=== PATIENT | female | born 1935 | race Caucasian/White ===

== ENCOUNTER → 2023-10-21 06:55 | Outpatient (REF) | payer MEDICARE, BC, SELFPAY | LOC: HWRAD 06:55 | PROVIDERS: ATTENDING PHYSICIAN Internal Medicine Critical Care Medicine; FAMILY PHYSICIAN Internal Medicine | DX: R91.1 Solitary pulmonary nodule (principal) | CPT/HCPCS: 71250 ==

== ENCOUNTER 2023-11-30 03:52 | Emergency (ER) | payer MEDICARE, BC, SELFPAY ==
[2023-11-30 03:53] VITALS: BP 162/84
[2023-11-30 04:08] VITALS: BMI 25.0
--- NOTE | 2023-11-30 07:14 | ED.GENMED ---
History of Present Illness
General
Chief Complaint: Extremity Pain (non-traumatic)
Source: patient
Time Seen by Provider: 11/30/23 06:02
Travel History
Have you had any contact with someone who has COVID-19?: No
Do you have any symptoms of coronavirus? Fever > 100 degrees, chills, cough, shortness of breath, sore throat, loss of taste or smell, muscle aches, or headache?: No
History of Present Illness
History of Present Illness:
88-year-old female with history of spinal stenosis who frequently gets epidural injections who presents with left lower extremity pain. She states pain is, lateral to the left calf little bit to the lateral aspect of the back of the knee on the
left. Patient states that this is somewhat similar to her previous lumbar to radiculopathy but admits she was concerned she could have a blood clot. The patient states she took only little bit of tramadol at home and can continue tramadol as
needed but wanted to take the lowest possible dose. She mostly is here to make sure she does have a blood clot.
Past History
Past History
ED Past Medical History: CAD, GERD, HTN, Hypercholesterolemia, Hypothyroidism and Other (Lumbar spinal stenosis)
ED Past Surgical History: Appendectomy, Cardiac and Cholecystectomy
Social History
Tobacco: Non-smoker
Alcohol: None
Drug: None
Living: alone
Phy Exam
Physical Exam
Physical Exam:
CONSTITUTIONAL Vital signs reviewed, Patient alert and oriented to person, place and time. Well-appearing
HEAD atraumatic, normocephalic.
EYES eyelids normal to inspection, Extraocular muscles intact, Conjunctiva normal, Sclera normal.
NECK normal range of motion, Trachea midline, no jugular venous distention.
RESP no respiratory distress
BACK No obvious deformities
UPPER EXTREMITY Gross Range of motion normal, gross motor strength normal
LOWER EXTREMITY Gross range of motion normal, Gross motor strength normal, no edema, normal bilateral dorsalis pedis pulses. No palpable cords. Obvious tenderness noted to the lateral edge of the calf at the proximal portion.
NEURO Speech normal, No focal motor deficits include, [place] coma scale 15, Memory normal, Cranial Nerves intact to screening exam.
SKIN Skin warm, dry, and normal in color.
PSYCHIATRIC Patient oriented to person place and time, Normal affect.
Course
Orders/Labs/Results
Orders:
Orders
11/30/23 06:23
D-Dimer Urgent
Abnormal Lab Results
11/30/23
06:23
D-Dimer 0.61 H ug/mlFEU
(0.00-0.50)
Vital Signs
Initial and Last Documented VS:
Initial Vital Signs
Temp Pulse Resp BP Pulse Ox
98.1 F 88 24 162/84 98
11/30/23 03:53 11/30/23 03:53 11/30/23 03:53 11/30/23 03:53 11/30/23 03:53
Last Documented Vital Signs
Temp Pulse Resp BP Pulse Ox
98.1 F 88 24 162/84 98
11/30/23 03:53 11/30/23 03:53 11/30/23 03:53 11/30/23 03:53 11/30/23 03:53
MDM/Problems Addressed
MDM/Problems Addressed:
Leg pain, lumbar radiculopathy, rule out DVT
*Pulse Oximetry
Patient hypoxic: no
*Critical Care Note
Total Time (30-74mins, 75-104mins- exclusive of procedures): Not Applicable
Data Reviewed
Source: patient
Further Testing Considered But Not Given:
Considered ultrasound but age-adjusted D-dimer is negative. In addition the patient is low risk by both her history and exam.
Patient Management
Escalation/DeEscalation of care consider admission/obs:
Patient appears well. Age-adjusted D-dimer negative (Medi-Calc calculation at 0.86 age-adjusted). Okay for discharge. Continue tramadol at home. Add short course of steroids
ED Attending Note
-
Portions of this chart may have been created with voice recognition software.� Occasional wrong word or��sound alike� substitutions may have occurred due to the inherent limitations of voice recognition software.
Discharge Plan
Departure
Patient Disposition: Home (Routine Discharge)
Date of Disposition: 11/30/23
Time of Disposition: 07:50
Patient with high blood pressure during this ER visit?: Yes
Discharge Problem:
Acute lumbar radiculopathy
Instructions: Radiculopathy, BLOOD PRESSURE
Prescriptions:
New
prednisone 10 mg Tablet
See Rx Instructions .ROUTE .COMPLEX Qty: 30 0RF
Rx Instructions:
Take By Mouth:
40 mg daily x3 days, 30 mg daily x3 days,
20 mg daily x3 days, 10 mg daily x3 days.
No Action
polyethylene glycol 3350 17 GRAMS powder in packet
1 packet PO DAILYPRN PRN (Reason: constipation)
levothyroxine [Synthroid] 100 MCG tablet
100 mcg PO SUMOWEFR
levothyroxine [Synthroid] 88 MCG tablet
88 mcg PO TUTHSA
metoprolol succinate 25 MG tablet extended release 24 hr
25 mg PO DAILY
pantoprazole 40 MG tablet,delayed release (DR/EC)
40 mg PO DAILY 0RF
nitroglycerin 0.4 MG tablet, sublingual
0.4 mg sublingual [id number] PRN (Reason: chest pain) Qty: 25 3RF
lidocaine [Aspercreme (lidocaine)] 1 PATCH adhesive patch,medicated
1 patch topical DAILY
isosorbide mononitrate 30 MG tablet extended release 24 hr
30 mg PO DAILY
aspirin 81 MG tablet,delayed release (DR/EC)
81 mg PO DAILY
acetaminophen [Tylenol Extra Strength] 500 MG tablet
1,000 mg PO TIDPRN PRN (Reason: pain)
famotidine 20 MG tablet
20 mg PO DAILY
calcium citrate-vitamin D3 [Citracal + D Maximum] 1 EACH tablet
1 ea PO QPM
Theracran 650 MG capsule
650 mg PO DAILY
multivitamin with folic acid [Tab-A-Balta] 1 TABLET tablet
1 tab PO DAILY
amlodipine 2.5 MG tablet
2.5 mg PO DAILY
atorvastatin 40 MG tablet
40 mg PO QPM
Referrals:
Aleshia Yarbrough MD [Family Provider] -
Activity Restrictions/Additional Instructions:
Continue tramadol as needed. You may also use Tylenol. Return for increased pain, swelling or any other concerns. Please see your doctor in the next 3 to 5 days for follow-up and reevaluation
Interventions
Interventions:
*Risk Screen - Suicide Last Done: 11/30/23 03:53
*General Assessment Last Done: 11/30/23 04:08
*Neglect/Abuse Screening Last Done: 11/30/23 03:53
ED- Fall Risk Assessment Last Done: 11/30/23 04:08
*ED COVID-19 Vaccine History Last Done: 11/30/23 04:08
ED-Skin Assessment Last Done: 11/30/23 04:08
ED-Peripheral Vascular Assessment Last Done: 11/30/23 04:08
ED-Musculoskeletal Assessment Last Done: 11/30/23 04:08
Discharge Date and Time
Print Language: LATVIAN
[2023-11-30 07:34] LABS: D-Dimer 0.61 ug/mlFEU (0.00-0.50)
[2023-11-30 07:37] VITALS: BP 120/54
[2023-11-30 07:54] VITALS: BP 120/54
== END 2023-11-30 07:55 | disposition home or self-care (01) ==
LOC: EMR 03:52
PROVIDERS: EMERGENCY PHYSICIAN Emergency Medicine; FAMILY PHYSICIAN Internal Medicine
DX: M54.16 Radiculopathy, lumbar region (principal); M79.605 Pain in left leg; I10 Essential (primary) hypertension; I25.10 Atherosclerotic heart disease of native coronary artery without angina pectoris; K21.9 Gastro-esophageal reflux disease without esophagitis; E78.00 Pure hypercholesterolemia, unspecified; E03.9 Hypothyroidism, unspecified; M48.061 Spinal stenosis, lumbar region without neurogenic claudication; Z90.49 Acquired absence of other specified parts of digestive tract; Z79.82 Long term (current) use of aspirin
CPT/HCPCS: 99283; 85379

== ENCOUNTER → 2023-12-14 08:16 | Outpatient (REF) | payer MEDICARE, BC, SELFPAY | LOC: MRI 3T 08:16 | PROVIDERS: ATTENDING PHYSICIAN Internal Medicine | DX: M54.50 Low back pain, unspecified (principal); M48.08 Spinal stenosis, sacral and sacrococcygeal region | CPT/HCPCS: 72148 ==

== ENCOUNTER → 2024-02-20 06:45 | Outpatient (REF) | payer OTHER, SELFPAY | LOC: RAD 06:45 | PROVIDERS: ATTENDING PHYSICIAN Internal Medicine | DX: I73.9 Peripheral vascular disease, unspecified (principal) | CPT/HCPCS: 93925 ==

== ENCOUNTER → 2024-10-18 08:42 | Outpatient (REF) | payer OTHER, SELFPAY | LOC: HWRAD 08:42 | PROVIDERS: ATTENDING PHYSICIAN Internal Medicine Critical Care Medicine; FAMILY PHYSICIAN Internal Medicine | DX: R91.1 Solitary pulmonary nodule (principal) | CPT/HCPCS: 71250 ==

== ENCOUNTER → 2025-02-21 07:00 | Outpatient (REF) | payer OTHER, SELFPAY | LOC: HWRAD 07:00 | PROVIDERS: ATTENDING PHYSICIAN Internal Medicine | DX: R10.11 Right upper quadrant pain (principal) | CPT/HCPCS: 76700 ==

== ENCOUNTER → 2025-03-15 07:01 | Outpatient (REF) | payer OTHER, SELFPAY | LOC: RAD 07:01 | PROVIDERS: ATTENDING PHYSICIAN Internal Medicine | DX: R10.11 Right upper quadrant pain (principal); K83.8 Other specified diseases of biliary tract | CPT/HCPCS: 74177; Q9967 ==

== ENCOUNTER → 2025-06-22 17:03 | Outpatient (REF) | payer OTHER, SELFPAY | LOC: MRI 3T 17:03 | PROVIDERS: ATTENDING PHYSICIAN Internal Medicine Gastroenterology; FAMILY PHYSICIAN Family Medicine | DX: Q44.5 Other congenital malformations of bile ducts (principal) | CPT/HCPCS: 74183; A9575 ==

== ENCOUNTER 2025-06-29 07:32 | Inpatient (IN) | payer OTHER, SELFPAY ==
[2025-06-25 21:13] VITALS: BP 130/73
[2025-06-25 22:26] VITALS: BP 140/55; BMI 26.8
--- NOTE | 2025-06-25 22:32 | ED.GENMED ---
History of Present Illness
<Nano Jernigan MD, Resident - Last Filed: 06/26/25 06:49>
General
Chief Complaint: Abdominal Pain
Source: patient and family
Time Seen by Provider: 06/25/25 21:55
History of Present Illness
History of Present Illness:
89-year-old female with past medical history of CAD status post 3 stents, hyperlipidemia, hypothyroidism, GERD, history of cholecystectomy presents to the ER for severe abdominal pain. She first had a severe episode of abdominal pain about 2 months
ago. She described as sudden onset, sharp, colicky mid epigastric pain that lasted about an hour and a half before going away. She started workup with a GI doctor at [facility] Dr. Yost who did abdomen/pelvis CT and eventual MRI of the abdomen
done on 06/22/25. 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
Tonight, she had recurrence of the mid epigastric pain. It started tonight around 6 PM. She did not eat anything atypical or fatty. She describes the pain as sharp, sudden onset however tonight it was constant associated with nausea. There was
no vomiting. No fevers or chills. Pain is 9 out of 10 and leaning forward makes it better. Nothing seems to make it worse. Now that she is in the ER, pain has been improving. She does not take NSAIDs, she has not had any recent antibiotic use,
her last bowel movements was today without issue. She denies any chest pain, chest tightness, heart palpitations, sore throat, runny nose, dysuria.
Past History
<Nano Jernigan MD, Resident - Last Filed: 06/26/25 06:49>
Past History
ED Past Medical History: CAD, GERD, HTN, Hypercholesterolemia, Hypothyroidism and Other (Lumbar spinal stenosis)
ED Past Surgical History: Appendectomy, Cardiac and Cholecystectomy
Social History
Tobacco: Non-smoker
Alcohol: None
Drug: None
Living: alone
Review of Systems
<Nano Jernigan MD, Resident - Last Filed: 06/26/25 06:49>
Review of Systems
Allergies reviewed?: Yes
Constitutional: Reports no symptoms
EENT: Reports no symptoms
Respiratory: Reports no symptoms
Cardiac: Reports no symptoms
ABD/GI: Reports abdominal pain, nausea and vomiting
: Reports no symptoms
Musculoskeletal: Reports no symptoms
Skin: Reports no symptoms
Neurological: Reports no symptoms
Endocrine: Reports no symptoms
Hematologic/Lymphatic: Reports no symptoms
Psychiatric: Reports no symptoms
Phy Exam
<Nano Jernigan MD, Resident - Last Filed: 06/26/25 06:49>
Physical Exam
Physical Exam:
General: Nontoxic appearing
Head: Atraumatic
Cardiac: Regular S1, S2, no murmurs
Respiratory: Clear breath sounds bilaterally
Abdomen: Midepigastric and right upper quadrant tenderness with palpation
Neurological: Nonfocal
Extremities: No peripheral edema
Course
<Nano Jernigan MD, Resident - Last Filed: 06/26/25 06:49>
Orders/Labs/Results
Orders:
Orders
06/25/25 22:29
Mag Hydrox/Al Hydrox/Simeth [Maalox] 30 ml Phenobarb/Hyoscy/Atropine/Scop [] 10 ml Viscous Lidocaine 2% [Xylocaine Viscous Cup] 10 ml PO NOW
06/25/25 22:30
Electrocardiogram (*1) Urgent
Reason for Study: Abdominal Pain
EKG- Treatment ONCE
06/25/25 22:40
Complete Blood Count/With Diff Urgent
Comprehensive Metabolic Panel Urgent
Lipase Urgent
06/25/25 22:42
Morphine Sulfate 4 mg IV NOW STA
Ondansetron Injectable [Zofran] 4 mg IV NOW STA
06/25/25 23:10
HYDROmorphone [Dilaudid] 0.5 mg IV NOW STA
06/25/25 23:26
Pantoprazole [Protonix IV] 40 mg IV NOW STA
06/25/25 23:34
GASTROINTESTINAL CONSULT Urgent
Consulting Provider: Dieter Palacios
Was physician already notified: Yes
06/25/25 23:47
Troponin I Urgent
06/26/25 00:36
Admit/Transfer Patient As Directed
Co-Sign Provider:
Level of Care: Observation services
Assign to:: Medical/Surgical
Physician / Group: Juan
Diagnosis: Gastritis
PRN Pain Medication Management As Directed
May give lesser potent ordered pain med per pt: Yes
preference::
Protocol:: Medication orders for pain may be administered in a
manner that supports deferring to patient preference
when the pt is:
- Requesting an ordered lesser potent pain medication.
Least to most potent pain medications are defined
as: acetaminophen < NSAID < tramadol < opioids
(morphine, oxycodone, hydromorphone).
- Requesting a lesser dose of the same medication IF
ORDERED.
- Requesting a less intrusive route of administration
if both routes are prescribed by the provider (PO <
IV).
06/26/25 00:37
Code Status As Directed
Resuscitation Status: Full Code
06/26/25 02:20
Acetaminophen [Tylenol] 650 mg PO Q4HPRN PRN
Bisacodyl [Dulcolax] 10 mg RECTAL [id number] PRN
Docusate W/Senna [Senokot-S] 1 tablet PO BIDPRN PRN
HYDROmorphone [Dilaudid] 0.5 mg IV Q4HPRN PRN
Lactated Ringers [Lr] 1,000 ml IV 75 mls/hr
Mag Hydrox/Al Hydrox/Simeth [Maalox] 30 ml PO Q6HPRN PRN
Ondansetron Injectable [Zofran] 4 mg IV Q6HPRN PRN
Polyethylene Glycol Powder [Miralax] 17 grams PO DAILYPRN PRN
06/26/25 02:20
Activity As Directed
Activity Level: With Assistance
Pneumatic Compression Sleeves As Directed
Type: Knee high
Vital Signs As Directed
Frequency: Per unit guidelines
DX Deep Vein Thrombosis Video Routine
06/26/25 Breakfast
Clear Liquid
At Your Request: Full Participation
Does patient need a safe tray?: No
Basic Metabolic Panel IN AM
Complete Blood Count/No Diff IN AM
Levothyroxine [Synthroid] 100 mcg PO SuMoWeFr@0600
06/26/25 08:00
Aspirin Low Dose EC [Aspir Low (Enteric Coated)] 81 mg PO DAILY
Famotidine [Pepcid] 20 mg PO DAILY
ISOSORBIDE MONOnitrate ER [Imdur (Extended Release)] 30 mg PO DAILY
Metoprolol Xl [Toprol Xl] 25 mg PO DAILY
Pantoprazole [Protonix IV] 40 mg IV BID
06/26/25 18:00
Atorvastatin [Lipitor] 40 mg PO QPM
06/28/25 06:00
Levothyroxine [Synthroid] 88 mcg PO TuThSa@0600
Abnormal Lab Results
06/25/25
22:40
RBC 4.14 L 10^6/uL
(4.20-5.40)
MCH 32.4 H pg
(27.0-31.0)
Absolute Neuts (auto) 7.2 H 10^3/uL
(1.4-6.5)
Absolute Lymphs (auto) 0.3 L 10^3/uL
(1.2-3.4)
Neutrophils % 89.1 H %
(42.2-75.2)
Lymphocytes % 3.7 L %
(20.5-51.1)
BUN 24 H mg/dl
(7-17)
Glucose 113 H mg/dl
(70-99)
AST 61 H U/L
(14-36)
ALT 41 H U/L
(0-35)
06/25/25 22:40
06/25/25 22:40
Vital Signs
Initial and Last Documented VS:
Initial Vital Signs
Temp Pulse Resp BP Pulse Ox
98.2 F 78 20 130/73 96
06/25/25 21:13 06/25/25 21:13 06/25/25 21:13 06/25/25 21:13 06/25/25 21:13
Last Documented Vital Signs
Temp Pulse Resp BP Pulse Ox
99.8 F 98 16 153/74 95
06/26/25 05:02 06/26/25 02:31 06/26/25 02:31 06/26/25 02:31 06/26/25 02:45
<Camilo Miner MD - Last Filed: 06/25/25 22:59>
Orders/Labs/Results
Orders:
Orders
06/25/25 22:29
Mag Hydrox/Al Hydrox/Simeth [Maalox] 30 ml Phenobarb/Hyoscy/Atropine/Scop [] 10 ml Viscous Lidocaine 2% [Xylocaine Viscous Cup] 10 ml PO NOW
06/25/25 22:30
Electrocardiogram (*1) Urgent
Reason for Study: Abdominal Pain
EKG- Treatment ONCE
06/25/25 22:40
Complete Blood Count/With Diff Urgent
Comprehensive Metabolic Panel Urgent
Lipase Urgent
06/25/25 22:42
Morphine Sulfate 4 mg IV NOW STA
Ondansetron Injectable [Zofran] 4 mg IV NOW STA
06/25/25 23:10
HYDROmorphone [Dilaudid] 0.5 mg IV NOW STA
06/25/25 23:26
Pantoprazole [Protonix IV] 40 mg IV NOW STA
06/25/25 23:34
GASTROINTESTINAL CONSULT Urgent
Consulting Provider: Dieter Palacios
Was physician already notified: Yes
06/25/25 23:47
Troponin I Urgent
06/26/25 00:36
Admit/Transfer Patient As Directed
Co-Sign Provider:
Level of Care: Observation services
Assign to:: Medical/Surgical
Physician / Group: Juan
Diagnosis: Gastritis
PRN Pain Medication Management As Directed
May give lesser potent ordered pain med per pt: Yes
preference::
Protocol:: Medication orders for pain may be administered in a
manner that supports deferring to patient preference
when the pt is:
- Requesting an ordered lesser potent pain medication.
Least to most potent pain medications are defined
as: acetaminophen < NSAID < tramadol < opioids
(morphine, oxycodone, hydromorphone).
- Requesting a lesser dose of the same medication IF
ORDERED.
- Requesting a less intrusive route of administration
if both routes are prescribed by the provider (PO <
IV).
06/26/25 00:37
Code Status As Directed
Resuscitation Status: Full Code
06/26/25 02:20
Acetaminophen [Tylenol] 650 mg PO Q4HPRN PRN
Bisacodyl [Dulcolax] 10 mg RECTAL [id number] PRN
Docusate W/Senna [Senokot-S] 1 tablet PO BIDPRN PRN
HYDROmorphone [Dilaudid] 0.5 mg IV Q4HPRN PRN
Lactated Ringers [Lr] 1,000 ml IV 75 mls/hr
Mag Hydrox/Al Hydrox/Simeth [Maalox] 30 ml PO Q6HPRN PRN
Ondansetron Injectable [Zofran] 4 mg IV Q6HPRN PRN
Polyethylene Glycol Powder [Miralax] 17 grams PO DAILYPRN PRN
06/26/25 02:20
Activity As Directed
Activity Level: With Assistance
Pneumatic Compression Sleeves As Directed
Type: Knee high
Vital Signs As Directed
Frequency: Per unit guidelines
DX Deep Vein Thrombosis Video Routine
06/26/25 Breakfast
Clear Liquid
At Your Request: Full Participation
Does patient need a safe tray?: No
Basic Metabolic Panel IN AM
Complete Blood Count/No Diff IN AM
Levothyroxine [Synthroid] 100 mcg PO SuMoWeFr@0600
06/26/25 08:00
Aspirin Low Dose EC [Aspir Low (Enteric Coated)] 81 mg PO DAILY
Famotidine [Pepcid] 20 mg PO DAILY
ISOSORBIDE MONOnitrate ER [Imdur (Extended Release)] 30 mg PO DAILY
Metoprolol Xl [Toprol Xl] 25 mg PO DAILY
Pantoprazole [Protonix IV] 40 mg IV BID
06/26/25 18:00
Atorvastatin [Lipitor] 40 mg PO QPM
06/28/25 06:00
Levothyroxine [Synthroid] 88 mcg PO TuThSa@0600
Abnormal Lab Results
06/25/25
22:40
RBC 4.14 L 10^6/uL
(4.20-5.40)
MCH 32.4 H pg
(27.0-31.0)
Absolute Neuts (auto) 7.2 H 10^3/uL
(1.4-6.5)
Absolute Lymphs (auto) 0.3 L 10^3/uL
(1.2-3.4)
Neutrophils % 89.1 H %
(42.2-75.2)
Lymphocytes % 3.7 L %
(20.5-51.1)
BUN 24 H mg/dl
(7-17)
Glucose 113 H mg/dl
(70-99)
AST 61 H U/L
(14-36)
ALT 41 H U/L
(0-35)
06/25/25 22:40
06/25/25 22:40
Vital Signs
Initial and Last Documented VS:
Initial Vital Signs
Temp Pulse Resp BP Pulse Ox
98.2 F 78 20 130/73 96
06/25/25 21:13 06/25/25 21:13 06/25/25 21:13 06/25/25 21:13 06/25/25 21:13
Last Documented Vital Signs
Temp Pulse Resp BP Pulse Ox
99.8 F 98 16 153/74 95
06/26/25 05:02 06/26/25 02:31 06/26/25 02:31 06/26/25 02:31 06/26/25 02:45
<Nano Jernigan MD, Resident - Last Filed: 06/26/25 06:49>
MDM/Problems Addressed
Differential Diagnosis Includes:
Pancreatitis, choledochocele complication, PUD, gastritis, mesenteric ischemia, LA
MDM/Problems Addressed:
Given recent imaging with MRI on 06/22/2025, will hold back on repeat imaging at this time. Will check CBC, CMP, lipase, EKG and troponin x 1. If lab results are unremarkable, we will reach out to GI for thoughts on complications of
choledochocele.
11:34
While in the ER, patient proceeded to developed persistent vomiting. We provided Protonix 40 IV, pain medication and Zofran. There is a slight elevation in her AST and ALT at 61 and 41. Lipase was 128 making pancreatitis unlikely. Unclear if
choledochocele is contributing to pain. Could be simple gastritis or PUD. Given age and comorbidities, will admit for further workup and management of nausea and vomiting. She may benefit from seeing GI in the morning.
Chronic conditions affecting care: CAD and Other (GERD)
<Nano Jernigan MD, Resident - Last Filed: 06/26/25 06:49>
*Pulse Oximetry
SaO2: 96
Oxygen Mode of Delivery: Room air
Patient hypoxic: no
*Critical Care Note
Total Time (30-74mins, 75-104mins- exclusive of procedures): Not Applicable
Data Reviewed
Review of Other/Old Records Reveals: Labs (Hg 12.0 on 08/03/23) and Radiology Studies (Abdominal MRI 06/22/2025 dilation of intrahepatic bile ducts, common hepatic duct and common bile duct with evidence for choledochocele.)
Source: patient and records
ED Attending Note
<Nano Jernigan MD, Resident - Last Filed: 06/26/25 06:49>
-
Portions of this chart may have been created with voice recognition software.� Occasional wrong word or��sound alike� substitutions may have occurred due to the inherent limitations of voice recognition software.
<Camilo Miner MD - Last Filed: 06/25/25 22:59>
ED Attending Note
Patient seen and examined by attending physician: Yes
ED Attending Note:
I have seen and evaluated the patient with a [id number] encounter. I have spoken to the advance practicer provider and involved in the medical history, the physical exam, medical decision making.
Evaluation and management service: agree unless noted differently below.
Results interpretation: agree unless noted differently below.
Focused HPI: 89-year-old female with a past medical history of hypertension, hyperlipidemia, CAD status post stents, GERD and a past surgical history of appendectomy, cholecystectomy, oophorectomy who presents to the emergency department for
evaluation of abdominal pain. Patient reports today symptoms started earlier this evening after eating and have been constant since onset. She reports pain in the epigastrium that radiates towards the right side. Associated with nausea and
vomiting. No fever or chills. No diarrhea in fact patient has been more constipated lately. No urinary symptoms. She had an almost identical episode 6 weeks ago that lasted for about 90 minutes and ultimately resolved on its own. She saw her
primary doctor at that time and was ordered for a CT scan which was nondiagnostic; follow-up MRI of the abdomen was performed 3 days ago which showed postsurgical changes from cholecystectomy; there was note of choledochocele which was present on
prior imaging although degree of ductal dilation slightly increased. No bile duct calculi and no other acute findings. She has been seeing GI through [facility] but is supposed to see GI here at [facility] in early July (Dr. Velasquez).
Physical exam: Awake and alert, sitting up in bed holding emesis bag. Vital signs are normal. Abdomen is soft and tender to palpation in the epigastrium.
Medical Decision Makin-year-old female presents for evaluation of abdominal pain with nausea and vomiting as described above. Recent imaging reviewed showed no acute abnormalities. Plan to check labs including CBC and a CMP, lipase. Check an
EKG and troponin in abundance of caution given her cardiac history although low suspicion that these are anginal symptoms. Somewhat less suspicious that symptoms are attributable to her choledochocele especially in the absence of any biliary stones
given that it was present on prior imaging and symptoms are more acute. This could be gastritis or PUD. Will plan to treat symptomatically for the time being we will reassess after labs. In my judgment no indication for further emergent imaging
at this point.
Discharge Plan
Departure
Patient Disposition: Admit
Date of Disposition: 06/25/25
Time of Disposition: 23:31
Presentation/result/management discussed w/ accepting MD/DO: Hospitalist
Discharge Problem:
Abdominal pain, epigastric, Choledochocele
Interventions
Interventions:
*Risk Screen - Suicide Last Done: 06/25/25 21:13
*General Assessment Last Done: 06/25/25 21:13
*Neglect/Abuse Screening Last Done: 06/25/25 21:13
*ED- Fall Risk Assessment Last Done: 06/25/25 22:27
*ED COVID-19 Vaccine History Last Done: 06/26/25 02:35
*ED Influenza Vaccine History Last Done: 06/25/25 21:13
*Nursing Disposition Last Done: 06/26/25 02:26
YN-Jqizve-Tiusrjllls Assessment Last Done: 06/25/25 22:28
Discharge Date and Time
Discharge Date/Time: 06/26/25 02:26
[2025-06-25] MEDS: ZOFRAN 4 MG IV ×2 (22:45)
[2025-06-25] MEDS: MORPHINE SULFATE 4 MG IV (22:46)
[2025-06-25 22:47] LABS: Hematocrit 39.8 % (37.0-47.0); Hemoglobin 13.4 g/dL (12.0-16.0); Mean Corp Hgb Conc. 33.7 g/dL (33.0-37.0); Mean Corpuscular Volume 96.1 fL (81.0-99.0); Nucleated Red Blood Cells % 0 %; Platelet Count 174 10^3/uL (130-400); Red Cell Dist. Width 13.1 % (11.5-14.5)
[2025-06-25 23:11] LABS: ALT (SGPT) 41 U/L (0-35); AST (SGOT) 61 U/L (14-36); Albumin 4.3 g/dl (3.5-5.0); Alkaline Phosphatase 71 U/L (38-126); Blood Urea Nitrogen 24 mg/dl (7-17); Calcium 9.4 mg/dl (8.4-10.2); Carbon Dioxide 29 mmol/L (22-30); Chloride 102 mmol/L (98-107); Estimated Creatinine Clearance 47 ml/min; Glucose 113 mg/dl (70-99); Lipase 128 U/L (23-300); Potassium 4.0 mmol/L (3.5-5.1); Sodium 135 mmol/L (135-145); Total Protein 7.1 g/dl (6.3-8.2); eGFR > 60.00
[2025-06-25] MEDS: DILAUDID 0.5 MG IV (23:16)
[2025-06-25] MEDS: PROTONIX IV 40 MG IV (23:43)
--- NOTE | 2025-06-26 00:09 | HPS.HSE ---
Family Physician
-
Family Physician: Alena Rojas
Chief Complaint
-
Abdominal pain
History of Present Illness
This is a 89-year-old female with past medical history significant for CAD status post stenting, TIA, hypertension, hyperlipidemia, GERD, hypothyroid, nonsustained ventricular tachycardia, disease a 89-year-old female with past medical history
significant for CAD status post stenting, TIA, hypertension, hyperlipidemia, GERD, hypothyroid, nonsustained ventricular tachycardia, presenting to the emergency department with ongoing abdominal pain.
She has a history of cholecystectomy with a choledochocele. She reports crampy abdominal pain with bloating and excessive gas as well as acid reflux symptoms. She had a recent MRI which shows status post colostomy, dilation of intrahepatic bile
ducts, the common bile duct and hepatic duct with evidence for a choledochocele. It is similar in appearance to examination on in February. The degree of ductal dilatation has increased compared to November 2018. Tonight she had worsening pain localized
to the epigastric region and also to the left upper quadrant and associated nausea and vomiting. The vomiting was nonbloody and nonbilious, reports more like reflux regurgitation with the smell of the recently ingested banana. She denied any
recent coffee-ground emesis or melena. She reports that she has had a prior EGD that was negative for any bleeding ulcer or for pathology. She denies having any fevers or chills. She denies any urinary symptoms. He denies having any chest pain.
She denies any shortness of breath.
In the Emergency Department she was afebrile, blood pressure of 140/55, pulse was 81 and she was satting 95% on room air. ECG shows a normal sinus rhythm at a rate of [address] or T wave changes.
CBC was unremarked. Electrolytes BUN and creatinine were normal. AST slightly increased to 61 ALT remains unchanged at 41. Lipase was negative. Total bilirubin was unremarkable.
Medical History
Past Medical History
Past Medical History: Reports Arrhythmia (Paroxysmal atrial tachycardia, nonsustained ventricular tachycardia), CAD (Status post stents x 3), CVA (TIA), GERD, HTN, Hypercholesterolemia, Hypothyroidism and Other (BP P PV)
Past Surgical History: Reports Appendectomy, (X 2) and Gynocological (Right oophorectomy)
Social History
Tobacco: Non-smoker
Alcohol: None
Drug: None
Family History
Family History: Not pertinent
Allergies / Home Medications
Allergies reflects when Allergies were last updated in [facility].
Home Medications with original date entered in [facility]
Allergy/Medication List:
Allergies
Allergy/AdvReac Type Severity Reaction Status Date / Time
No Known Allergies Allergy Verified 06/25/25 21:13
Home Medications
polyethylene glycol 3350 17 gram oral powder packet 1 packet PO DAILYPRN PRN constipation 04/03/16
levothyroxine 100 mcg tablet (Synthroid) 100 mcg PO SUMOWEFR 07/05/19
levothyroxine 88 mcg tablet (Synthroid) 88 mcg PO TUTHSA 07/05/19
metoprolol succinate 25 mg tablet,extended release 24 hr 25 mg PO DAILY 07/05/19
nitroglycerin 0.4 mg sublingual tablet 0.4 mg sublingual [id number] PRN chest pain #25 tabs 07/08/19
pantoprazole 40 mg tablet,delayed release 40 mg PO DAILY 07/08/19
acetaminophen 500 mg tablet (Tylenol Extra Strength) 1,000 mg PO TIDPRN PRN pain 01/22/21
amlodipine 2.5 mg tablet 2.5 mg PO DAILY Heart disease/condition 01/22/21
aspirin 81 mg tablet,delayed release 81 mg PO DAILY 01/22/21
atorvastatin 40 mg tablet 40 mg PO QPM 01/22/21
calcium 315 mg (as citrate)-vitamin D3 6.25 mcg (250 unit) tablet (Citracal + Vitamin D Maximum) 1 ea PO QPM 01/22/21
cranberry extract 650 mg capsule (Theracran) 650 mg PO DAILY 01/22/21
famotidine 20 mg tablet 20 mg PO DAILY 01/22/21
isosorbide mononitrate 30 mg tablet,extended release 24 hr 30 mg PO DAILY 01/22/21
lidocaine 4 % topical patch (Aspercreme (lidocaine)) 1 patch topical DAILY LOWER BACK 01/22/21
multivitamin with folic acid 400 mcg tablet (Tab-A-Balta) 1 tab PO DAILY 01/22/21
prednisone 10 mg tablet See Rx Instructions .Route .COMPLEX #30 tabs 11/30/23
Review of Systems
-
Constitutional: Reports No Symptoms
EENT: Reports No Symptoms
Respiratory: Reports No Symptoms
Cardiac: Reports No Symptoms
Abdomen/GI: Reports Abdominal Pain
: Reports No Symptoms
Musculoskeletal: Reports No Symptoms
Skin: Reports No Symptoms
Neurological: Reports No Symptoms
Endocrine: Reports No Symptoms
Hematologic/Lymphatic: Reports No Symptoms
Psych: Reports No Symptoms
Physical Exam
Vital Signs
Vital Signs
Temp Pulse Resp BP Pulse Ox
98.2 F 81 23 140/55 95
06/25/25 21:13 06/25/25 22:45 06/25/25 22:45 06/25/25 22:26 06/25/25 22:45
Physical Exam
General: Comfortable and Conversant
HEENT: NormoCephalic, Anicteric, Moist mucous membranes and Oxygen
Respiratory: Clear
Cardiac: S1/S2 and Regular Rhythm
GI: Soft, Non Tender, Non Distended and Normal Bowel Sounds
Rectal: Deferred by Provider
Genito-urinary: Deferred by me
Musculoskeletal: No Clubbing, No Cyanosis and No Edema
Skin: Warm
Neuro: AO x 3 and Nonfocal/grossly intact
Psych: Calm
Laboratory Results
-
06/25/25 22:40
06/25/25 22:40
Laboratory Results
Total Bilirubin 1.1 mg/dl (0.2-1.3) 06/25/25 22:40
AST 61 U/L (14-36) H 06/25/25 22:40
ALT 41 U/L (0-35) H 06/25/25 22:40
Alkaline Phosphatase 71 U/L (38-126) 06/25/25 22:40
Troponin I Cancelled 06/25/25 22:40
Lipase 128 U/L (23-300) 06/25/25 22:40
Data Reviewed
-
MRI: Report Reviewed by me
Medical Tests (Nuc Med, Echo, EKG etc): Image Personally Visualized and interpreted
Lab Data: Labs Reviewed by me
Old Records: Reviewed
Impression/Plan
-
IMPRESSION:
89-year-old with past medical history significant for CAD status post stenting now on aspirin, history of GERD on pantoprazole, hypertension, paroxysmal atrial tachycardia, nonsustained VT, status post cholecystectomy with choledochocele presents
with acute epigastric pain as well as left upper quadrant pain. She does have a history of intermittent diffuse abdominal pain with bloating, excessive gas and acid reflux symptoms. In the emergency department she is afebrile hemodynamically
stable within normal labs including LFTs and lipase. ECG is nonischemic. Symptoms does not appear to be cardiac in nature but rather likely gastritis versus peptic ulcer. Recent abdominal MRI showing no abnormalities except for the choledochocele
as well as increasing dilation of the bile ducts including intrahepatic hepatic and common.
PLAN:
Abdominal pain -suspect more reflux/gastritis versus biliary.
-Admit to MedSurg observation
-PPI IV twice daily for now
-Famotidine at bedtime
-Maalox as needed
-Avoid NSAIDs, okay to use low-dose opioids as needed for now
-Trend LFTs
-GI consultation
CAD -ECG is nonischemic, denies chest pain or shortness of breath
-Continue low-dose aspirin and statin
-Continue metoprolol
-Continue isosorbide mononitrate
Hypothyroid
-Continue Synthroid
DVT PPX - SCDs
Code status
[2025-06-26 00:31] LABS: Troponin I < 0.012 ng/ml
[2025-06-26 02:28] VITALS: BMI 20.2
--- NOTE | 2025-06-26 02:30 | PTCARENOTE ---
Received patient from ED via stretcher. Patient ambulated from stretcher to bed x1 assist. AAOx3, no current complaints of pain. Oriented patient to room and placed call araujo within reach.
[2025-06-26 02:31] VITALS: BP 153/74
[2025-06-26] MEDS: LR 1000 IV (02:51)
[2025-06-26] MEDS: SYNTHROID 100 MCG PO (05:22)
[2025-06-26 07:14] LABS: Hematocrit 36.5 % (37.0-47.0); Hemoglobin 12.3 g/dL (12.0-16.0); Mean Corp Hgb Conc. 33.7 g/dL (33.0-37.0); Mean Corpuscular Volume 97.6 fL (81.0-99.0); Platelet Count 155 10^3/uL (130-400); Red Cell Dist. Width 13.0 % (11.5-14.5)
[2025-06-26 07:30] VITALS: BP 126/52
[2025-06-26 07:34] LABS: Blood Urea Nitrogen 25 mg/dl (7-17); Calcium 8.4 mg/dl (8.4-10.2); Carbon Dioxide 29 mmol/L (22-30); Chloride 102 mmol/L (98-107); Estimated Creatinine Clearance 63 ml/min; Glucose 130 mg/dl (70-99); Sodium 135 mmol/L (135-145); eGFR > 60.00
[2025-06-26 07:39] LABS: Potassium 4.1 mmol/L (3.5-5.1)
--- NOTE | 2025-06-26 08:54 | W.PN.HOSP.TC ---
Today's Communication/Plan
-
see PN
Assessment / Plan
Assessment / Plan
89yo F with PMHx of cholecystectomy, constipation, HLD, HTN, spinal stenosis and disk bulge, hypothyroidism, CAD, GERD came with recurrence of epigastric pain with nausea. Initially started 2-3 weeks ago, abruptly, radiating to RUQ and back.
Patient went to urgent care at that time and nothing significant was found. Pain spontaneously improved, but dyscomfort somewhat persisted, so PCP sent sarita Garcia for GI eval with , who scheduled her for MRI of abd done 4 days
before this admission and found ilation of the intrahepatic bile ducts, the common hepatic duct, and the common bile duct, with evidence for a choledochocele, that was also seen on CT in February.
A/P:
#Epigastric and RUQ pain
#Transaminitis (chronic since 2019)
Lipase WNL
recent MRI without acute findings, but reoccurence of pain happened after the study
Previous CT in February 2025 - without pancreatic abnormality
US RUQ will be reasonable
GI consult
PPI
Hepatitis panel
Advance diet as per GI
#fever
#Leukopenia (reactive?)
no , respiratory symptoms
Bcx, Ucx, Chest XR
Check COVID-19 and influenza PCR
follow CBC
#CAD, stable
#Chronic constipation
#Spinal stenosis
#Hypothyroidism
#Essential HTN
cont home meds
DVT ppx lovenox
Full code
I have spent at least 51min reviewing patient chart, test results, communication with consultants and providing direct patient care
Anticipated Discharge: 24 - 48 hours
Subjective/Interval History
-
Date of Service: June 26, 2025
Objective Data
-
Labs:
Laboratory Results
06/25/25 06/26/25
22:40 06:05
WBC 8.1 3.4 L
Hgb 13.4 12.3
Hct 39.8 36.5 L
Plt Count 174 155
Sodium 135 135
Potassium 4.0 4.1
Chloride 102 102
Carbon Dioxide 29 29
BUN 24 H 25 H
Creatinine 0.7 0.6
Glucose 113 H 130 H
Calcium 9.4 8.4
Total Bilirubin 1.1 Pending
AST 61 H Pending
ALT 41 H Pending
Alkaline Phosphatase 71 Pending
Vital Signs:
Vital Signs
Temp Pulse Resp BP Pulse Ox
98.8 F 78 16 126/52 93
06/26/25 07:30 06/26/25 07:30 06/26/25 07:30 06/26/25 07:30 06/26/25 07:30
I&O
06/25/25 06/26/25 06/27/25
06:59 06:59 06:59
Intake Total 480 / 480
Balance 480 / 480
Review of Systems
-
History Source: Patient
All other systems: Reviewed and negative
Abdomen/GI: Reports Abdominal Pain
Physical Exam
-
General: No Apparent Distress and Comfortable
HEENT: Normocephalic
Respiratory: Clear to Auscultation
Cardiac: Regular Rhythm
GI: Soft, Nontender, Nondistended and Normal Bowel Sounds
Musculoskeletal: No Clubbing, No Cyanosis and No Edema
Neuro: Awake, Alert, Oriented, AO x 3 and No Motor Deficits
Psych: Calm
[2025-06-26] MEDS: ASPIR LOW (ENTERIC COATED) 81 MG PO (09:05)
[2025-06-26] MEDS: IMDUR (EXTENDED RELEASE) 30 MG PO (09:05)
[2025-06-26] MEDS: TOPROL XL 25 MG PO (09:05)
[2025-06-26] MEDS: PEPCID 20 MG PO (09:05)
[2025-06-26 09:24] LABS: Albumin 3.7 g/dl (3.5-5.0); Alkaline Phosphatase 99 U/L (38-126); Total Protein 6.1 g/dl (6.3-8.2)
[2025-06-26 09:52] LABS: ALT (SGPT) 1515 U/L (0-35); AST (SGOT) 2521 U/L (14-36)
[2025-06-26 10:02] LABS: COVID-19 Antigen Negative (Negative)
--- NOTE | 2025-06-26 10:14 | W.PN.UPDATE ---
Addendum entered and electronically signed by Lele Singh MD 06/26/25 11:42:
Autoimmune hepatitis w/u sent
Original Note:
Update Note
Progress Note Update
Severe worsening of transaminitis:
check HepA IgM, Acetaminophen level, INR, stop Tylenol, statin, switch to CT abd with IV contrast instead of US, start Zosyn to cover for biliary infection with RUQ pain and fever.
--- NOTE | 2025-06-26 10:17 | CM ---
CM spoke with pt's son Mikcey on the phone [phone].
Confirmed PCP is Alena Rojas. [facility]acy is [facility].
Pt has no HC or SNF history.
Ind with adls and amb using no AD prior to admission. No DME. + [employer].
Family to transport home when stable.
Anticipated discharge dispo home no needs.
[2025-06-26 10:44] LABS: INR 0.99; PT 13.4 Sec (11.4-14.6)
[2025-06-26 10:55] LABS: Acetaminophen < 10 ug/ml (10-30)
[2025-06-26] MEDS: PROTONIX IV 40 MG IV ×2 (11:11→20:51)
[2025-06-26] MEDS: NSS (PRESERVATIVE FREE) 10 ML IV ×2 (11:12→20:52)
[2025-06-26 12:51] LABS: Hepatitis B Surface Antigen Negative (Negative)
[2025-06-26] MEDS: ZOSYN 50 IV ×3 (12:59→23:18)
[2025-06-26] MEDS: ZOFRAN 4 MG IV ×2 (13:09→21:00)
[2025-06-26 14:42] LABS: Urine Character Clear (Clear)
[2025-06-26 15:30] VITALS: BP 114/49
--- NOTE | 2025-06-26 15:35 | CON.GI ---
Consultation
-
Date/Time Consultation Requested: 06/26/2025
Date/Time Consultation Performed: 06/26/2025
Performing Provider: Dieter Palacios
Reason for Consultation: abdominal pain, elevated LFT
Medical History
Chief Complaint / HPI
Chief Complaint: abdominal pain, elevated LFT
History of Present Illness:
89 year old female with h/o CAD s/p stent, TIA, HTN, hyperlipidemia, GERD, hypothyroid, and nonsustained ventricular tachycardia who p/w abdominal pain. She had worsening epigastric and LUQ abdominal pain associated nausea and vomiting. The
vomiting was nonbloody and nonbilious. She denies fevers or chills, but reports her daughter is having similar symptoms (vomiting).
Past Medical History
Past Medical History: Arrhythmias, CAD, HTN, Hypercholesterolemia, Hypothyroidism and Other
Past Surgical History: Appendectomy, Cholecystectomy and Other
Social History
Tobacco: Non-Smoker
Alcohol: None
Drug: None
Allergies / Home Medications
Allergy/AdvReac Type Severity Reaction Status Date / Time
Influenza Virus Vaccines Allergy Mild Swelling Verified 06/26/25 02:43
�Medication �Instructions �Recorded
polyethylene glycol 3350 17 gram 1 packet PO DAILYPRN PRN 04/03/16
oral powder packet constipation
levothyroxine 100 mcg tablet 100 mcg PO SUMOWEFR 07/05/19
(Synthroid)
levothyroxine 88 mcg tablet 88 mcg PO TUTHSA 07/05/19
(Synthroid)
metoprolol succinate 25 mg 25 mg PO DAILY 07/05/19
tablet,extended release 24 hr
nitroglycerin 0.4 mg sublingual 0.4 mg sublingual [id number] PRN 07/08/19
tablet chest pain #25 tabs
pantoprazole 40 mg tablet,delayed 40 mg PO DAILY 07/08/19
release
acetaminophen 500 mg tablet 1,000 mg PO TIDPRN PRN pain 01/22/21
(Tylenol Extra Strength)
amlodipine 2.5 mg tablet 2.5 mg PO DAILY Heart 01/22/21
disease/condition
aspirin 81 mg tablet,delayed 81 mg PO DAILY 01/22/21
release
atorvastatin 40 mg tablet 40 mg PO QPM 01/22/21
calcium 315 mg (as 1 ea PO QPM 01/22/21
citrate)-vitamin D3 6.25 mcg (250
unit) tablet (Citracal + Vitamin D
Maximum)
cranberry extract 650 mg capsule 650 mg PO DAILY 01/22/21
(Theracran)
famotidine 20 mg tablet 20 mg PO DAILY 01/22/21
isosorbide mononitrate 30 mg 30 mg PO DAILY 01/22/21
tablet,extended release 24 hr
lidocaine 4 % topical patch 1 patch topical DAILY LOWER BACK 01/22/21
(Aspercreme (lidocaine))
multivitamin with folic acid 400 1 tab PO DAILY 01/22/21
mcg tablet (Tab-A-Balta)
prednisone 10 mg tablet See Rx Instructions .Route 11/30/23
.COMPLEX #30 tabs
Review of Systems
Vital Signs
Temp Pulse Resp BP Pulse Ox
98.6 F 78 16 126/52 93
06/26/25 11:00 06/26/25 09:05 06/26/25 07:30 06/26/25 09:05 06/26/25 07:30
Physical Exam
Exam
General: Well Developed and Well Nourished
HEENT: Normocephalic and Anicteric
Respiratory: Clear
Cardiac: S1/S2
GI: Soft, Non Tender, Non Distended and Normal Bowel Sounds
Results
WBC 3.4 10^3/uL (4.8-10.8) L 06/26/25 06:05
Hgb 12.3 g/dL (12.0-16.0) 06/26/25 06:05
Hct 36.5 % (37.0-47.0) L 06/26/25 06:05
MCV 97.6 fL (81.0-99.0) 06/26/25 06:05
Plt Count 155 10^3/uL (130-400) 06/26/25 06:05
Absolute Neuts (auto) 7.2 10^3/uL (1.4-6.5) H 06/25/25 22:40
PT 13.4 Sec (11.4-14.6) 06/26/25 10:23
INR 0.99 06/26/25 10:23
Sodium 135 mmol/L (135-145) 06/26/25 06:05
Potassium 4.1 mmol/L (3.5-5.1) 06/26/25 06:05
Chloride 102 mmol/L (98-107) 06/26/25 06:05
Carbon Dioxide 29 mmol/L (22-30) 06/26/25 06:05
BUN 25 mg/dl (7-17) H 06/26/25 06:05
Creatinine 0.6 mg/dL (0.6-1.0) 06/26/25 06:05
Calcium 8.4 mg/dl (8.4-10.2) 06/26/25 06:05
Total Bilirubin 1.3 mg/dl (0.2-1.3) 06/26/25 06:05
AST 2521 U/L (14-36) H* 06/26/25 06:05
ALT 1515 U/L (0-35) H* 06/26/25 06:05
Alkaline Phosphatase 99 U/L (38-126) 06/26/25 06:05
Lipase 128 U/L (23-300) 06/25/25 22:40
Hepatitis A IgM Ab Negative (Negative) 06/26/25 06:05
Hep B Core Total Ab Negative (Negative) 06/26/25 06:05
Diagnostic Image Results:
Prior GI Procedures:
EGD:
Colonoscopy:
Assessment / Plan
-
89 year old female with h/o CAD s/p stent, TIA, HTN, hyperlipidemia, GERD, hypothyroid, and nonsustained ventricular tachycardia who p/w abdominal pain and vomiting. Her LFT was noted to be significantly elevated.
Impression / Rec:
1. Abdominal pain/vomiting/elevated LFT - her symptoms include abdominal pain, fatigue and vomiting. She reports her daughter is having similar symptoms. Denies sick contacts. AST/ALT 61/41 on admission (06/25), today 2521/1515. Alk phos/bili
normal. HAV IgM and HBV sAg are -ve. CT abd is non-diagnostic. No new meds. Will add EBV/CMV/HSV.
Total Time Spent with Patient (in minutes): 55
-
-
Thank you for consultation and allowing me to participate in the patient's care. Please call the utility person GI physician during the after hours with any questions or concerns.
[2025-06-26 15:46] LABS: Urine Squamous Cell 0-2 /LPF (Few); Urine White Cell 0-2 /HPF (0-5)
[2025-06-26] MEDS: LOVENOX 40 MG SC (18:10)
[2025-06-26 18:11] LABS: Hepatitis C Antibody Negative (Negative)
[2025-06-26 23:47] VITALS: BP 108/44
[2025-06-27] MEDS: SYNTHROID 100 MCG PO (05:55)
[2025-06-27] MEDS: ZOSYN 50 IV ×3 (05:55→18:06)
[2025-06-27 07:08] VITALS: BP 106/40
[2025-06-27] MEDS: PEPCID 20 MG PO (08:31)
[2025-06-27] MEDS: PROTONIX IV 40 MG IV ×2 (08:31→20:40)
[2025-06-27] MEDS: ASPIR LOW (ENTERIC COATED) 81 MG PO (08:31)
[2025-06-27] MEDS: NSS (PRESERVATIVE FREE) 10 ML IV ×2 (08:31→20:40)
[2025-06-27 09:05] LABS: Hematocrit 35.8 % (37.0-47.0); Hemoglobin 11.5 g/dL (12.0-16.0); Mean Corp Hgb Conc. 32.1 g/dL (33.0-37.0); Mean Corpuscular Volume 98.9 fL (81.0-99.0); Nucleated Red Blood Cells % 0 %; Platelet Count 139 10^3/uL (130-400); Red Cell Dist. Width 13.2 % (11.5-14.5)
[2025-06-27 09:12] LABS: Albumin 3.1 g/dl (3.5-5.0); Alkaline Phosphatase 93 U/L (38-126); Blood Urea Nitrogen 17 mg/dl (7-17); Calcium 8.0 mg/dl (8.4-10.2); Carbon Dioxide 28 mmol/L (22-30); Chloride 103 mmol/L (98-107); Estimated Creatinine Clearance 42 ml/min; Glucose 92 mg/dl (70-99); Potassium 3.7 mmol/L (3.5-5.1); Sodium 132 mmol/L (135-145); Total Protein 5.5 g/dl (6.3-8.2); eGFR > 60.00
[2025-06-27 09:32] LABS: ALT (SGPT) 933 U/L (0-35); AST (SGOT) 975 U/L (14-36)
[2025-06-27 10:35] VITALS: BP 114/44
[2025-06-27] MEDS: TOPROL XL PO (10:37)
[2025-06-27] MEDS: IMDUR (EXTENDED RELEASE) PO (10:37)
--- NOTE | 2025-06-27 11:45 | W.PN.HOSP.TC ---
Today's Communication/Plan
-
follow LFT
reglan
Assessment / Plan
Assessment / Plan
89yo F with PMHx of cholecystectomy, constipation, HLD, HTN, spinal stenosis and disk bulge, hypothyroidism, CAD, GERD came with recurrence of epigastric pain with nausea. Initially started 2-3 weeks ago, abruptly, radiating to RUQ and back.
Patient went to urgent care at that time and nothing significant was found. Pain spontaneously improved, but dyscomfort somewhat persisted, so PCP sent sarita Garcia for GI eval with , who scheduled her for MRI of abd done 4 days
before this admission and found dilation of the intrahepatic bile ducts, the common hepatic duct, and the common bile duct, with evidence for a choledochocele, that was also seen on CT in February.
A/P:
#Epigastric and RUQ pain
#Transaminitis acute on chronic
#Enteritis
Hepatitis
Lipase WNL
recent MRI without acute findings, however dilated biliary ducts, but reoccurrence of pain happened after the study
Previous CT in February 2025 - without pancreatic abnormality
CT abd: enteritis. Check norovirus and stool Cx however no diarrhea
GI consult
PPI
Acute hepatitis panel neg
Advance diet as per GI
Patient was taking Pepto Bismol for 3 days prior to admission: possible bismuth toxicity
Follow LFT
Autoimmune hepatitis and CMV/EBV/HSV workup
#3mm supleural nodule
patient non-smoker
reasonable repeat low dose CT in 12 months, but as per guidelines - no monitoring advised
#fever
#Leukopenia (reactive?)
no , respiratory symptoms
Bcx, Ucx, Chest XR
Check COVID-19 and influenza PCR
follow CBC
#CAD, stable
#Chronic constipation
#Spinal stenosis
#Hypothyroidism
#Essential HTN
cont home meds
laxatives
#Diverticulosis
high fiber diet
#Hepatic cysts
no follow up advised
DVT ppx lovenox
Full code
I have spent at least 51min reviewing patient chart, test results, communication with consultants and providing direct patient care
Anticipated Discharge: 24 - 48 hours
Subjective/Interval History
-
Date of Service: June 27, 2025
Objective Data
-
Labs:
Laboratory Results
06/27/25
07:51
WBC 3.5 L
Hgb 11.5 L
Hct 35.8 L
Plt Count 139
Sodium 132 L
Potassium 3.7
Chloride 103
Carbon Dioxide 28
BUN 17
Creatinine 0.9
Glucose 92
Calcium 8.0 L
Total Bilirubin 1.2
AST 975 H*
ALT 933 H*
Alkaline Phosphatase 93
Vital Signs:
Vital Signs
Temp Pulse Resp BP Pulse Ox
98.2 F 64 18 114/44 96
06/27/25 07:08 06/27/25 10:35 06/27/25 07:08 06/27/25 10:35 06/27/25 07:08
I&O
06/26/25 06/27/25 06/28/25
06:59 06:59 06:59
Intake Total 480 / 480 480 / 480
Output Total 400 / 400
Balance 480 / 480 80 / 80
Review of Systems
-
History Source: Patient
All other systems: Reviewed and negative
Abdomen/GI: Reports Nausea
Physical Exam
-
General: No Apparent Distress
HEENT: Normocephalic
Respiratory: Clear to Auscultation
Cardiac: Regular Rhythm
GI: Soft, Nontender, Nondistended and Normal Bowel Sounds
Neuro: Awake, Alert, Oriented and AO x 3
Psych: Calm
[2025-06-27] MEDS: REGLAN 5 MG IV (13:56)
[2025-06-27 15:28] VITALS: BP 114/44
--- NOTE | 2025-06-27 17:23 | W.PN.GI.CBS2 ---
Today's Communication / Plan
-
FLD
Assessment / Plan
-
89 year old female with h/o CAD s/p stent, TIA, HTN, hyperlipidemia, GERD, hypothyroid, and nonsustained ventricular tachycardia who p/w abdominal pain and vomiting. Her LFT was noted to be significantly elevated.
Abdominal pain/vomiting/elevated LFT - her symptoms include abdominal pain, fatigue and vomiting. She reports her daughter is having similar symptoms. Denies sick contacts. AST/ALT 61/41 on admission (06/25), today 2521/1515. Alk phos/bili
normal. HAV IgM and HBV sAg are -ve. CT abd is non-diagnostic. No new meds.
Some nausea today, denies vomiting. LFT is improving spontaneously. EBV/CMV/HSV pending. Will advance to FLD.
Total Time Spent with Patient (in minutes): 35
Subjective
Subjective
Date of Service: June 27, 2025
Some nausea, no vomiting. LFT improving
Objective
Data Reviewed
Laboratory Data:
Laboratory Results
06/27/25 07:51
06/27/25 07:51
Laboratory Results
PT 13.4 Sec (11.4-14.6) 06/26/25 10:23
INR 0.99 06/26/25 10:23
Total Bilirubin 1.2 mg/dl (0.2-1.3) 06/27/25 07:51
AST 975 U/L (14-36) H* 06/27/25 07:51
ALT 933 U/L (0-35) H* 06/27/25 07:51
Alkaline Phosphatase 93 U/L (38-126) 06/27/25 07:51
Lipase 128 U/L (23-300) 06/25/25 22:40
Vital Signs and I&O:
Vital Signs
Temp Pulse Resp BP Pulse Ox
98.1 F 60 18 114/44 95
06/27/25 15:28 06/27/25 15:28 06/27/25 15:28 06/27/25 15:28 06/27/25 15:28
I&O
06/26/25 06/27/25 06/28/25
06:59 06:59 06:59
Intake Total 480 / 480 480 / 480
Output Total 400 / 400
Balance 480 / 480 80 / 80
[2025-06-27] MEDS: LOVENOX 40 MG SC (18:05)
[2025-06-28 00:11] VITALS: BP 131/56
[2025-06-28] MEDS: ZOSYN 50 IV ×2 (00:14→06:00)
[2025-06-28] MEDS: ANESTHETIC LOZENGE 1 LOZENGE PO ×2 (01:22→06:08)
[2025-06-28] MEDS: SYNTHROID 88 MCG PO (06:00)
[2025-06-28 07:20] VITALS: BP 121/49
[2025-06-28 08:51] LABS: INR 1.01; PT 13.6 Sec (11.4-14.6)
[2025-06-28 09:03] LABS: Hematocrit 36.9 % (37.0-47.0); Hemoglobin 12.2 g/dL (12.0-16.0); Mean Corp Hgb Conc. 33.1 g/dL (33.0-37.0); Mean Corpuscular Volume 98.9 fL (81.0-99.0); Nucleated Red Blood Cells % 0 %; Platelet Count 144 10^3/uL (130-400); Red Cell Dist. Width 13.0 % (11.5-14.5)
[2025-06-28 09:16] LABS: ALT (SGPT) 652 U/L (0-35); AST (SGOT) 545 U/L (14-36); Albumin 3.4 g/dl (3.5-5.0); Alkaline Phosphatase 102 U/L (38-126); Blood Urea Nitrogen 11 mg/dl (7-17); Calcium 8.0 mg/dl (8.4-10.2); Carbon Dioxide 27 mmol/L (22-30); Chloride 109 mmol/L (98-107); Estimated Creatinine Clearance 54 ml/min; Glucose 94 mg/dl (70-99); Potassium 3.3 mmol/L (3.5-5.1); Sodium 138 mmol/L (135-145); Total Protein 5.9 g/dl (6.3-8.2); eGFR > 60.00
[2025-06-28] MEDS: PEPCID 20 MG PO (09:39)
[2025-06-28] MEDS: ASPIR LOW (ENTERIC COATED) 81 MG PO (09:40)
[2025-06-28] MEDS: PROTONIX IV 40 MG IV ×2 (09:40→20:23)
[2025-06-28] MEDS: IMDUR (EXTENDED RELEASE) 30 MG PO (09:40)
[2025-06-28] MEDS: NSS (PRESERVATIVE FREE) 10 ML IV ×2 (09:40→20:23)
[2025-06-28] MEDS: TOPROL XL 25 MG PO (09:40)
[2025-06-28] MEDS: KCL 40 MEQ PO (10:57)
--- NOTE | 2025-06-28 11:07 | W.PN.GI.CBS2 ---
Addendum entered and electronically signed by Mitzi Bradley Do, MD 06/28/25 14:56:
I saw and examined the patient.
The METEOROLOGICAL AIDE's note was reviewed and I agree with the note.
Comment: She reports chronic h/o constipation on miralax for many years and prune juice. Denies abd pain, nausea/vomiting tolerating diet. Vitals stable exam NTTP no jaundice. Labs reviewed LFTs downtrending
Impression
- Trend LFTs improving. Thus far viral and hereditary workup negative
- Suspect transient ischemic vs viral
- Tolerating low residue diet
Anticipate hosp d/c tomorrow with lab slip [facility] in 1 wks time
She has OP FU with Dr Pond in Jul 2025. Will follow with you
Addendum entered and electronically signed by DUY Morales 06/28/25 11:29:
K 3.3 replete per primary team
Original Note:
Today's Communication / Plan
-
Etiology of symptoms - infectious with multiple family member ill, ischemic with marked rise in LFT's, biliary issues as some dry heaves but not vomiting or diarrhea, constipation driven vs other
pt feeling better, no abdominal pain or bloating and multiple formed stools passed since yesterday
LFT's improving cont to trend
will advance to low residue diet
EBV/CMV/HSV pending, hepatitis neg, Tylenol <10, JULIANNE, AMA, actin, LKM pending
family updated
Assessment / Plan
-
89 year old female with h/o CAD s/p stent, TIA, HTN, hyperlipidemia, GERD, hypothyroid, and nonsustained ventricular tachycardia who p/w abdominal pain and nausea and dry heaves after eating mikel tuna. Her LFT was noted to be significantly elevated
after admission. + multiple family members with similar symptoms. no new medications. Denies syncope prior to admission.
06/26/25 CT Abd/Pel (IV only)-DH only
1. Suspect mild enteritis/ileus. No other significant acute abnormality identified in the abdomen or pelvis, as described above.
2. Moderate diffuse colonic stool burden may reflect constipation.
Laboratory Tests
06/25/25 06/26/25 06/27/25
22:40 06:05 07:51
Total Bilirubin 1.1 1.3 1.2
Direct Bilirubin 0.4
AST 61 H 975 H*
ALT 41 H 933 H*
Alkaline Phosphatase 71 99 93
06/28/25
07:52
Total Bilirubin 0.8
Direct Bilirubin
AST 545 H*
ALT 652 H*
Alkaline Phosphatase 102
-abdominal pain with nausea/dry heaves
-CT with enteritis
-Ct with constipation
-marked rise in LFT's after admission CT with prominent ducts likely normal given age and post patria
other med problems:
CAD s/p stent, TIA, HTN, hyperlipidemia, GERD, hypothyroid, and nonsustained ventricular tachycardia, prior patria per imaging
PLAN:
Etiology of symptoms - infectious with multiple family member ill, ischemic with marked rise in LFT's, biliary issues as some dry heaves but not vomiting or diarrhea, constipation driven vs other
pt feeling better, no abdominal pain or bloating and multiple formed stools passed since yesterday
LFT's improving cont to trend
will advance to low residue diet
EBV/CMV/HSV pending, hepatitis neg, Tylenol <10, JULIANNE, AMA, actin, LKM pending
family updated
Subjective
Subjective
Date of Service: June 28, 2025
tolerating full liquid diet and feeling better -- multiple formed stools this am
Objective
Data Reviewed
Laboratory Data:
Laboratory Results
06/28/25 07:52
06/28/25 07:52
Laboratory Results
PT 13.6 Sec (11.4-14.6) 06/28/25 07:52
INR 1.01 06/28/25 07:52
Total Bilirubin 0.8 mg/dl (0.2-1.3) 06/28/25 07:52
AST 545 U/L (14-36) H* 06/28/25 07:52
ALT 652 U/L (0-35) H* 06/28/25 07:52
Alkaline Phosphatase 102 U/L (38-126) 06/28/25 07:52
Lipase 128 U/L (23-300) 06/25/25 22:40
Vital Signs and I&O:
Vital Signs
Temp Pulse Resp BP Pulse Ox
98.6 F 57 18 121/49 93
06/28/25 07:20 06/28/25 07:20 06/28/25 07:20 06/28/25 07:20 06/28/25 07:20
I&O
06/27/25 06/28/25 06/29/25
06:59 06:59 06:59
Intake Total 480 / 480 480 / 480
Output Total 400 / 400
Balance 80 / 80 480 / 480
Physical Exam
Physical Exam
HEENT: Anicteric and Moist mucous membranes
Cardiology: Normal Sinus Rhythm
Pulmonary: Clear
GI: Soft, Non Distended and Non Tender
Extremities: No Edema
Neuro: Non Focal
--- NOTE | 2025-06-28 11:38 | W.PN.HOSP.TC ---
Today's Communication/Plan
-
low residue diet
Assessment / Plan
Assessment / Plan
89yo F with PMHx of cholecystectomy, constipation, HLD, HTN, spinal stenosis and disk bulge, hypothyroidism, CAD, GERD came with recurrence of epigastric pain with nausea. Initially started 2-3 weeks ago, abruptly, radiating to RUQ and back.
Patient went to urgent care at that time and nothing significant was found. Pain spontaneously improved, but dyscomfort somewhat persisted, so PCP sent sarita Garcia for GI eval with , who scheduled her for MRI of abd done 4 days
before this admission and found dilation of the intrahepatic bile ducts, the common hepatic duct, and the common bile duct, with evidence for a choledochocele, that was also seen on CT in February.
A/P:
#Epigastric and RUQ pain
#Transaminitis acute on chronic
#Enteritis
Hepatitis
Lipase WNL
recent MRI without acute findings, however dilated biliary ducts, but reoccurrence of pain happened after the study
Previous CT in February 2025 - without pancreatic abnormality
CT abd: enteritis. Check stool Cx however no diarrhea
GI consult
PPI
Acute hepatitis panel neg
Advance diet as per GI
Patient was taking Pepto Bismol for 3 days prior to admission: possible bismuth toxicity
Follow LFT
Autoimmune hepatitis and CMV/EBV/HSV workup
#3mm subpleural nodule
patient non-smoker
reasonable repeat low dose CT in 12 months, but as per guidelines - no monitoring advised
#Hypokalemia
2/2 CLD
replete
#fever
#Leukopenia (reactive?)
no , respiratory symptoms
Bcx, UA, Chest XR neg for acute disease
COVID-19 and influenza PCR neg
follow CBC
#CAD, stable
#Chronic constipation
#Spinal stenosis
#Hypothyroidism
#Essential HTN
cont home meds
laxatives
#Diverticulosis
high fiber diet
#Hepatic cysts
no follow up advised
DVT ppx lovenox
Full code
I have spent at least 36min reviewing patient chart, test results, communication with consultants and providing direct patient care
Anticipated Discharge: Within 24 hours
Subjective/Interval History
-
Date of Service: June 28, 2025
Objective Data
-
Labs:
Laboratory Results
06/28/25
07:52
WBC 4.6 L
Hgb 12.2
Hct 36.9 L
Plt Count 144
PT 13.6
INR 1.01
Sodium 138
Potassium 3.3 L
Chloride 109 H
Carbon Dioxide 27
BUN 11
Creatinine 0.7
Glucose 94
Calcium 8.0 L
Total Bilirubin 0.8
AST 545 H*
ALT 652 H*
Alkaline Phosphatase 102
Vital Signs:
Vital Signs
Temp Pulse Resp BP Pulse Ox
98.6 F 57 18 121/49 93
06/28/25 07:20 06/28/25 07:20 06/28/25 07:20 06/28/25 07:20 06/28/25 07:20
I&O
06/27/25 06/28/25 06/29/25
06:59 06:59 06:59
Intake Total 480 / 480 480 / 480
Output Total 400 / 400
Balance 80 / 80 480 / 480
Review of Systems
-
History Source: Patient
All other systems: Reviewed and negative
Physical Exam
-
General: No Apparent Distress
HEENT: Normocephalic
Cardiac: Regular Rhythm
GI: Soft, Nontender and Nondistended
Musculoskeletal: No Clubbing, No Cyanosis and No Edema
Neuro: Awake, Alert, Oriented and AO x 3
Psych: Calm
[2025-06-28 12:48] LABS: Magnesium 2.2 mg/dl (1.6-2.3)
[2025-06-28 15:08] VITALS: BP 117/51
[2025-06-28] MEDS: LOVENOX 40 MG SC (16:59)
--- NOTE | 2025-06-28 17:19 | CM ---
Possible DC tomorrow. No change in dc plan
Plan: Home no needs
[2025-06-28 17:22] LABS: CMV Qnt NAAT Plasma Log IU/mL Not Detected log IU/mL; CMV Quant NAAT Plasma Interp Not Detected (Not Detected); CMV Quant by NAAT Plasma IU/mL Not Detected
[2025-06-28 20:43] VITALS: BP 135/57
[2025-06-28 23:43] LABS: EBV-VCA IgM Antibodies <10.0 U/mL (<=35.9)
[2025-06-29 00:10] VITALS: BP 129/61
[2025-06-29 01:38] VITALS: BP 139/59
[2025-06-29 01:46] LABS: LKM-1 Ab (IgG) 1.8 U (0.0-24.9)
[2025-06-29 02:07] LABS: ANA, IgG Reflex to HEp-2 None Detected (None Detected)
[2025-06-29 02:36] LABS: Mitochondrial M2 Ab, IgG 32.4 Units (0.0-24.9)
[2025-06-29] MEDS: SYNTHROID 100 MCG PO (05:41)
[2025-06-29] MEDS: ANESTHETIC LOZENGE 1 LOZENGE PO (07:37)
[2025-06-29] MEDS: NSS (PRESERVATIVE FREE) 10 ML IV (07:38)
[2025-06-29] MEDS: PROTONIX IV 40 MG IV (07:38)
[2025-06-29] MEDS: IMDUR (EXTENDED RELEASE) 30 MG PO (07:38)
[2025-06-29] MEDS: PEPCID 20 MG PO (07:38)
[2025-06-29] MEDS: TOPROL XL 25 MG PO (07:38)
[2025-06-29] MEDS: ASPIR LOW (ENTERIC COATED) 81 MG PO (07:40)
[2025-06-29 07:55] VITALS: BP 140/59
[2025-06-29 08:36] LABS: Hematocrit 36.1 % (37.0-47.0); Hemoglobin 11.7 g/dL (12.0-16.0); Mean Corp Hgb Conc. 32.4 g/dL (33.0-37.0); Mean Corpuscular Volume 99.2 fL (81.0-99.0); Platelet Count 168 10^3/uL (130-400); Red Cell Dist. Width 13.1 % (11.5-14.5)
[2025-06-29 09:03] LABS: ALT (SGPT) 476 U/L (0-35); AST (SGOT) 281 U/L (14-36); Albumin 3.5 g/dl (3.5-5.0); Alkaline Phosphatase 94 U/L (38-126); Blood Urea Nitrogen 8 mg/dl (7-17); Calcium 8.5 mg/dl (8.4-10.2); Carbon Dioxide 26 mmol/L (22-30); Chloride 110 mmol/L (98-107); Estimated Creatinine Clearance 54 ml/min; Glucose 94 mg/dl (70-99); Potassium 3.4 mmol/L (3.5-5.1); Sodium 140 mmol/L (135-145); Total Protein 5.9 g/dl (6.3-8.2); eGFR > 60.00
--- NOTE | 2025-06-29 10:56 | W.PN.GI.CBS2 ---
Addendum entered and electronically signed by Mitzi Bradley Do, MD 06/29/25 13:59:
I saw and examined the patient.
The IT ASSOCIATE's note was reviewed and I agree with the note.
Comment: She denies further diarrhea. Eager to go home today. Vitals stable exam NTTP. Labs +NOROVIRUS.
Recommendations
- LFTs continue to improve
- Labs slip for 1 wk from now
- Positive AMA seen suggestive of PBC but given normal Alk Phos no current indication for ursodiol
She is ok for hosp d/c today from GI perspective and will FU with Dr Velasquez appt already set 07/19
GI will sign off please call for ?
Addendum entered and electronically signed by DUY Morales 06/29/25 11:05:
K 3.4 - repleted per medical team
stable from GI for discharge all questions answered
Original Note:
Today's Communication / Plan
-
Etiology of symptoms -likely norovirus with enteritis, then diarrhea and multiple family members with illness
pt feeling much better diarrhea now resolved
c-diff, Giardia, crypto neg other cx pending
LFT's continue to improve
cont low residue diet
EBV/CMV neg , hepatitis neg, Tylenol <10, JULIANNE- neg , AMA 32.4 , actin 6, LKM 1.8, Imm G 741
OP follow up scheduled 07/[address] Velasquez- repeat LFT 1 week(slip left in chart for patient), review AMA in follow up with noted elevation- Dr. Bhatti reviewed result with patient
Assessment / Plan
-
89 year old female with h/o CAD s/p stent, TIA, HTN, hyperlipidemia, GERD, hypothyroid, and nonsustained ventricular tachycardia who p/w abdominal pain and nausea and dry heaves after eating mikel tuna. Her LFT was noted to be significantly elevated
after admission. + multiple family members with similar symptoms. no new medications. Denies syncope prior to admission. + norovirus noted after admission
06/26/25 CT Abd/Pel (IV only)-DH only
1. Suspect mild enteritis/ileus. No other significant acute abnormality identified in the abdomen or pelvis, as described above.
2. Moderate diffuse colonic stool burden may reflect constipation.
Laboratory Tests
06/25/25 06/26/25 06/27/25
22:40 06:05 07:51
Total Bilirubin 1.1 1.3 1.2
Direct Bilirubin 0.4
AST 61 H 975 H*
ALT 41 H 933 H*
Alkaline Phosphatase 71 99 93
06/28/25
07:52
Total Bilirubin 0.8
Direct Bilirubin
AST 545 H*
ALT 652 H*
Alkaline Phosphatase 102
Laboratory Tests
06/29/25
07:57
Total Bilirubin 0.4
AST 281 H
ALT 476 H
Alkaline Phosphatase 94
-abdominal pain with nausea/dry heaves culture + for norovirus
-CT with enteritis
-elevated AMA
-Ct with constipation
-marked rise in LFT's after admission CT with prominent ducts likely normal given age and post patria
other med problems:
CAD s/p stent, TIA, HTN, hyperlipidemia, GERD, hypothyroid, and nonsustained ventricular tachycardia, prior patria per imaging
PLAN:
Etiology of symptoms -likely norovirus with enteritis, then diarrhea and multiple family members with illness
pt feeling much better diarrhea now resolved
c-diff, Giardia, crypto neg other cx pending
LFT's continue to improve
cont low residue diet
EBV/CMV neg , hepatitis neg, Tylenol <10, JULIANNE- neg , AMA 32.4 , actin 6, LKM 1.8, Imm G 741
OP follow up scheduled 07/[address] Velasquez- repeat LFT 1 week(slip left in chart for patient), review AMA in follow up with noted elevation- Dr. Bhatti reviewed result with patient
Subjective
Subjective
Date of Service: June 29, 2025
Pt feeling better no further diarrhea
Objective
Data Reviewed
Laboratory Data:
Laboratory Results
06/29/25 07:57
06/29/25 07:57
Laboratory Results
PT 13.6 Sec (11.4-14.6) 06/28/25 07:52
INR 1.01 06/28/25 07:52
Magnesium 2.2 mg/dl (1.6-2.3) 06/28/25 07:52
Total Bilirubin 0.4 mg/dl (0.2-1.3) 06/29/25 07:57
AST 281 U/L (14-36) H 06/29/25 07:57
ALT 476 U/L (0-35) H 06/29/25 07:57
Alkaline Phosphatase 94 U/L (38-126) 06/29/25 07:57
Lipase 128 U/L (23-300) 06/25/25 22:40
Vital Signs and I&O:
Vital Signs
Temp Pulse Resp BP Pulse Ox
98.1 F 57 16 140/59 96
06/29/25 07:55 06/29/25 07:55 06/29/25 07:55 06/29/25 07:55 06/29/25 07:55
I&O
06/28/25 06/29/25 06/30/25
06:59 06:59 06:59
Intake Total 480 / 480 480 / 480
Balance 480 / 480 480 / 480
Physical Exam
Physical Exam
HEENT: Anicteric and Moist mucous membranes
Cardiology: Normal Sinus Rhythm
Pulmonary: Clear
GI: Soft, Non Distended and Non Tender
Extremities: No Edema
Neuro: Non Focal
--- NOTE | 2025-06-29 11:02 | W.PN.HOSP.TC ---
Today's Communication/Plan
-
medcially stable for d/c home
Assessment / Plan
Assessment / Plan
89yo F with PMHx of cholecystectomy, constipation, HLD, HTN, spinal stenosis and disk bulge, hypothyroidism, CAD, GERD came with recurrence of epigastric pain with nausea. Initially started 2-3 weeks ago, abruptly, radiating to RUQ and back.
Patient went to urgent care at that time and nothing significant was found. Pain spontaneously improved, but dyscomfort somewhat persisted, so PCP sent sarita Garcia for GI eval with , who scheduled her for MRI of abd done 4 days
before this admission and found dilation of the intrahepatic bile ducts, the common hepatic duct, and the common bile duct, with evidence for a choledochocele, that was also seen on CT in February. Transaminitis rapidly resolving. AMA are slightly
elevated -patient to follow up with existent GI appoitment in Jul as recommended by GI
A/P:
#Epigastric and RUQ pain
#Transaminitis acute on chronic
#Enteritis 2/2 norovirus
Lipase WNL
recent MRI without acute findings, however dilated biliary ducts, but reoccurrence of pain happened after the study
Previous CT in February 2025 - without pancreatic abnormality
CT abd: enteritis. Check stool Cx however no diarrhea
GI consult
PPI
Acute hepatitis panel neg
Advance diet as per GI
Patient was taking Pepto Bismol for 3 days prior to admission: possible bismuth toxicity
Follow LFT
Mitochondrial (M2) Antibody, IgG minimally elevated
CMV/EBV/HSV neg
#3mm subpleural nodule
patient non-smoker
reasonable repeat low dose CT in 12 months, but as per guidelines - no monitoring advised
#Hypokalemia
2/2 CLD
replete
#fever
#Leukopenia (reactive?)
no , respiratory symptoms
Bcx, UA, Chest XR neg for acute disease
COVID-19 and influenza PCR neg
follow CBC
#CAD, stable
#Chronic constipation
#Spinal stenosis
#Hypothyroidism
#Essential HTN
cont home meds
laxatives
#Diverticulosis
high fiber diet
#Hepatic cysts
no follow up advised
DVT ppx lovenox
Full code
I have spent at least 36min reviewing patient chart, test results, communication with consultants and providing direct patient care
Anticipated Discharge: Today
Subjective/Interval History
-
Date of Service: June 29, 2025
Objective Data
-
Labs:
Laboratory Results
06/29/25
07:57
WBC 5.3
Hgb 11.7 L
Hct 36.1 L
Plt Count 168
Sodium 140
Potassium 3.4 L
Chloride 110 H
Carbon Dioxide 26
BUN 8
Creatinine 0.7
Glucose 94
Calcium 8.5
Total Bilirubin 0.4
AST 281 H
ALT 476 H
Alkaline Phosphatase 94
Vital Signs:
Vital Signs
Temp Pulse Resp BP Pulse Ox
98.1 F 57 16 140/59 96
06/29/25 07:55 06/29/25 07:55 06/29/25 07:55 06/29/25 07:55 06/29/25 07:55
I&O
06/28/25 06/29/25 06/30/25
06:59 06:59 06:59
Intake Total 480 / 480 480 / 480
Balance 480 / 480 480 / 480
Review of Systems
-
History Source: Patient
All other systems: Reviewed and negative
Physical Exam
-
General: No Apparent Distress
HEENT: Normocephalic
GI: Soft, Nontender and Nondistended
Neuro: Awake, Alert, Oriented and AO x 3
Psych: Calm
--- NOTE | 2025-06-29 11:12 | W.DCSUMMARY ---
Discharge Summary
Discharge Data
Date of Admission: 06/29/25
Date of Discharge: 06/29/25
-
Pending Results: No
Hospital Course
89yo F with PMHx of cholecystectomy, constipation, HLD, HTN, spinal stenosis and disk bulge, hypothyroidism, CAD, GERD came with recurrence of epigastric pain with nausea. Initially started 2-3 weeks ago, abruptly, radiating to RUQ and back.
Patient went to urgent care at that time and nothing significant was found. Pain spontaneously improved, but dyscomfort somewhat persisted, so PCP sent sarita Garcia for GI eval with , who scheduled her for MRI of abd done 4 days
before this admission and found dilation of the intrahepatic bile ducts, the common hepatic duct, and the common bile duct, with evidence for a choledochocele, that was also seen on CT in February. Transaminitis rapidly resolving. AMA are slightly
elevated -patient to follow up with existent GI appoitment in Dec as recommended by GI. CT chest by PCP recommended. Hypokalemia repleted
I have spent at least 36min reviewing patient chart, test results, communication with consultants and providing direct patient care
Patient was manahed for:
#Epigastric and RUQ pain
#Transaminitis acute on chronic
#Enteritis 2/2 norovirus
#3mm subpleural nodule
#Hypokalemia
#fever
#Leukopenia (reactive?)
#CAD, stable
#Chronic constipation
#Spinal stenosis
#Hypothyroidism
#Essential HTN
#Diverticulosis
#Hepatic cysts
Discharge Plan
-
Patient Disposition: Home (Routine Discharge)
Discharge Diagnosis/Procedures: norovirus enteritis
Blood Work: LFT in 1 week see slip, check potassium level with family doctor in 5 days
Others Tests: CT chest for plural nodule - referral to be obtained from family doctor
Referrals:
Alena Rojas, DO [Family Provider, Family Practice] - in less than 1 week
Referral Note: LFt follow up and CT chest for subpleural nodule
Nikky Velasquez MD [Active, Gastroenterology] - 07/19/25 2:00 pm
Referral Note: follow up as scheduled. Repeat labs in 1 week after discharge
discuss elevated Mitochondrial (M2) Antibody, IgG
Prescriptions:
Continued
polyethylene glycol 3350 17 GRAMS powder in packet
1 packet PO DAILYPRN PRN (Reason: constipation)
levothyroxine [Synthroid] 100 MCG tablet
100 mcg PO SUMOWEFR
levothyroxine [Synthroid] 88 MCG tablet
88 mcg PO TUTHSA
metoprolol succinate 25 MG tablet extended release 24 hr
25 mg PO DAILY
pantoprazole 40 MG tablet,delayed release (DR/EC)
40 mg PO DAILY 0RF
nitroglycerin 0.4 MG tablet, sublingual
0.4 mg sublingual [id number] PRN (Reason: chest pain) Qty: 25 3RF
lidocaine [Aspercreme (lidocaine)] 1 PATCH adhesive patch,medicated
1 patch topical DAILY
isosorbide mononitrate 30 MG tablet extended release 24 hr
30 mg PO DAILY
aspirin 81 MG tablet,delayed release (DR/EC)
81 mg PO DAILY
famotidine 20 MG tablet
20 mg PO DAILY
calcium citrate-vitamin D3 [Citracal + D Maximum] 1 EACH tablet
1 ea PO QPM
Theracran 650 MG capsule
650 mg PO DAILY
multivitamin with folic acid [Tab-A-Balta] 1 TABLET tablet
1 tab PO DAILY
amlodipine 2.5 MG tablet
2.5 mg PO DAILY
atorvastatin 40 MG tablet
40 mg PO QPM
Discontinued
acetaminophen [Tylenol Extra Strength] 500 MG tablet
1,000 mg PO TIDPRN PRN (Reason: pain)
prednisone 10 mg Tablet
See Rx Instructions .ROUTE .COMPLEX Qty: 30 0RF
Rx Instructions:
Take By Mouth:
40 mg daily x3 days, 30 mg daily x3 days,
20 mg daily x3 days, 10 mg daily x3 days.
Discharge Orders:
Discharge Patient (As Directed); Ordered 06/29/25
Ordered By: Lele Singh
Discharge Date and Time
Print Language: MONTSERRATIAN
[2025-06-29] MEDS: KCL 40 MEQ PO ×2 (11:13→14:17)
--- NOTE | 2025-06-29 12:59 | CM ---
Patient is on isolation, IMM discussed placed on chart, patient is for discharge to home today, no needs.
Plan; Home today, no needs.
[2025-06-29 13:05] LABS: Folate 19.8 ng/ml (2.76-20); Vitamin B12 922 pg/ml (239-931)
[2025-06-29 14:17] VITALS: BP 125/52
== END 2025-06-29 14:41 | disposition home or self-care (01) | DRG 392 ==
LOC: 4 WEST ACU 07:32
PROVIDERS: Nurse Practitioner Adult Health; ADMITTING PHYSICIAN Internal Medicine; ATTENDING PHYSICIAN Internal Medicine; CONSULT PHYSICIAN Internal Medicine Gastroenterology; EMERGENCY PHYSICIAN Emergency Medicine; FAMILY PHYSICIAN Family Medicine
DX: A08.11 Acute gastroenteropathy due to Norwalk agent (principal); K29.70 Gastritis, unspecified, without bleeding; E03.9 Hypothyroidism, unspecified; I10 Essential (primary) hypertension; K57.30 Diverticulosis of large intestine without perforation or abscess without bleeding; E87.6 Hypokalemia; Z11.52 Encounter for screening for COVID-19; Z79.82 Long term (current) use of aspirin
CPT/HCPCS: 71046; 74177; 80053; 80143; 81003; 81015; 82248; 82550; 82607; 82746; 82784; 82787; 83690; 83735; 84484; 85025; 85027; 85610; 86015; 86038; 86376; 86381; 86665; 86704; 86706; 86709; 86803; 87015; 87040; 87045; 87046; 87077; 87207; 87324; 87328; 87329; 87340; 87427; 87449; 87497; 87502; 87798; 87811; 89055; 93005; 96374; 96375; 99284; Q9967

== ENCOUNTER → 2025-08-15 08:24 | Outpatient (REF) | payer OTHER, SELFPAY | LOC: HWRAD 08:24 | PROVIDERS: ATTENDING PHYSICIAN Internal Medicine Rheumatology; FAMILY PHYSICIAN Family Medicine | DX: M81.0 Age-related osteoporosis without current pathological fracture (principal) | CPT/HCPCS: 77080 ==